=== PATIENT | female | born 1965 | race American Indian/Alaskan Native ===

== ENCOUNTER 2017-03-19 10:27 | Emergency (ER) | payer OTHER ==
[2017-03-19 15:08] LABS: Hematocrit 43.3 % (30.3-42.9); Mean Corpuscular HGB Conc 32 % (30-34); Mean Corpuscular Hemoglobin 27 pg (28-32); Mean Corpuscular Volume 85 fl (79-97); Platelet Count 338 K/mm3 (140-440); Red Cell Distribution Width 13.4 % (13.2-15.2); White Blood Count 6.7 K/mm3 (4.5-11.0)
[2017-03-19] MEDS ORDERED: CATAPRES PO ONE (15:09)
--- NOTE | 2017-03-19 15:09 | Emergency Department Report ---
HPI - General Chief Complaint: Pain General Time Seen by Provider: 03/19/17 14:18 - HPI HPI: This is a 52-year-old [place] female presents to the emergency department from home with complaint of some concern of enlargement of her thyroid and/or swelling of the neck. She is able to swallow both liquids and solids but says that she has some pain with doing so. She has a history of a thyroid nodule and cysts on the thyroid that were evaluated by Dr. Nunes, through [facility], about 9 or 10 months ago. The nodule was biopsied and was found not to be cancerous. At the same time these cysts were drained. She is supposed to have a one- year follow-up but more recently she feels like the swelling has returned. She denies any fever, chest pain, shortness of breath, nausea, vomiting. She has not taken anything for her symptoms prior to presentation. ED Past Medical Hx - Past Medical History Previous Medical History?: No - Surgical History Past Surgical History?: Yes - Social History Smoking Status: Never Smoker Substance Use Type: None ED Review of Systems ROS: Stated complaint: THROAT SWELLING/THYROID Other details as noted in HPI Comment: All other systems reviewed and negative Constitutional: denies: chills, fever Eyes: denies: eye pain, eye discharge, vision change ENT: denies: ear pain, throat pain Respiratory: denies: cough, shortness of breath, wheezing Cardiovascular: denies: chest pain, palpitations Gastrointestinal: denies: abdominal pain, nausea, diarrhea Genitourinary: denies: urgency, dysuria, discharge Musculoskeletal: denies: back pain, arthralgia Skin: denies: rash, lesions Neurological: denies: headache, weakness, paresthesias Physical Exam - Physical Exam Vital Signs: Vital Signs 03/19/17 03/19/17 11:15 14:18 Temperature 97.9 F Pulse Rate 18 L 74 Respiratory 18 16 Rate Blood Pressure 188/94 Blood Pressure 181/91 [Left] O2 Sat by Pulse 99 97 Oximetry Physical Exam: GENERAL: The patient is well-developed well-nourished. HENT: Normocephalic. Atraumatic. Patient has moist mucous membranes. No drooling or trismus. Oropharynx is clear. EYES: Extraocular motions are intact. Pupils equal reactive to light bilaterally. NECK: Supple. Trachea is midline. There is some anterior neck fullness. CHEST/LUNGS: Clear to auscultation. There is no respiratory distress noted. HEART/CARDIOVASCULAR: Regular. There is no tachycardia. There is no gallop rub or murmur. ABDOMEN: Abdomen is soft, nontender. Patient has normal bowel sounds. There is no abdominal distention. SKIN: Skin is warm and dry. NEURO: The patient is awake, alert, and oriented. The patient is cooperative. The patient has no focal neurologic deficits. The patient has normal speech. MUSCULOSKELETAL: There is no tenderness or deformity. There is no limitation range of motion. There is no evidence of acute injury. ED Course Vital Signs 03/19/17 03/19/17 11:15 14:18 Temperature 97.9 F Pulse Rate 18 L 74 Respiratory 18 16 Rate Blood Pressure 188/94 Blood Pressure 181/91 [Left] O2 Sat by Pulse 99 97 Oximetry ED Medical Decision Making - Lab Data Result diagrams: 03/19/17 14:44 03/19/17 14:44 - Radiology Data Radiology results: report reviewed ULTRASOUND THYROID INDICATION: Thyromegaly, neck swelling. History of thyroid nodules, FNA. COMPARISON: 08/24/[address] images. FINDINGS: Longitudinal and transverse grayscale and color flow sonographic evaluation of the thyroid demonstrates an approximately 2.2 x 0.9 cm solid nodule in the isthmus as on image 8. Remainder isthmic thickness approximately 0.7 cm. RIGHT LOBE: Estimated at 4.1 x 1.5 x 1.4 cm. Normal echogenicity and vascularity, though at least 2 small hypoechoic/cystic foci noted in its upper aspect, the larger approximately 5-6 mm as on image 22. LEFT LOBE: Estimated at 3.7 x 1.1 x 1.2 cm with preserved echogenicity and vascularity. A small 3-4 mm peripheral hypoechoic focus noted superiorly, image 37. CONCLUSION: Overall normal thyroid gland size with few small nodules, the largest again noted in the isthmus, as above. Thank you for the opportunity to participate in this patient's care. Transcribed By: RS Dictated By: NIKOK MACEDO MD Electronically Authenticated By: NIKKO MACEDO MD Signed Date/Time: 03/19/17 3384 - Medical Decision Making 52-year-old female presents with the complaint of a feeling of fullness towards the neck and/or throat with some pain or difficulty swallowing. She feels that this consistent with a previous thyroid nodule and cysts that she had had to be drained. Labs are unremarkable. Thyroid or sound shows a thyroid nodule in the isthmus and a few other nodules. She does not have any drooling or trismus and is able to keep down her secretions and swallow water. There is nothing that appears to be a thyroid emergency and the patient has good follow-up with Dr. Nunes whom the patient says previously took care of her thyroid nodule and cysts. She will return to the ER with any worsening of her symptoms or any acute distress. - Differential Diagnosis thyromegaly, malignancy, lymphadenopathy Critical Care Time: No Critical care attestation.: If time is entered above; I have spent that time in minutes in the direct care of this critically ill patient, excluding procedure time. ED Disposition Clinical Impression: Thyroid nodule Disposition: DC- TO HOME OR SELFCARE Is pt being admited?: No Condition: Stable Instructions: Thyroid Nodules (ED) Additional Instructions: Please follow-up with your primary care physician and the physician who previously worked on your thyroid. Return to the emergency department with any worsening of your symptoms or any acute distress. Referrals: ANDREEA NUNES MD [Referring] - ANDREA Forms: Work/School Release Form(ED) Time of Disposition: 17:00
[2017-03-19 15:27] LABS: Alanine Aminotransferase 51 units/L (7-56); Albumin 4.3 g/dL (3.9-5); Albumin/Globulin Ratio 1.2 %; Alkaline Phosphatase 117 units/L (35-129); Anion Gap 16 mmol/L; BUN/Creatinine Ratio 13; Blood Urea Nitrogen 8 mg/dL (7-17); Calcium 9.3 mg/dL (8.4-10.2); Carbon Dioxide 29 mmol/L (22-30); Glucose 86 mg/dL (65-100); Potassium 3.6 mmol/L (3.6-5.0); Sodium 141 mmol/L (137-145)
[2017-03-19 15:37] VITALS: BP 148/85
[2017-03-19 16:13] LABS: Basophils % (Manual) 0 % (0.0-1.8); Blastocytes % (Manual) 0 %
[2017-03-19 16:14] LABS: Anisocytosis 1+; Large Platelets Few; Poikilocytosis Few
[2017-03-19 16:15] LABS: Diff Status Complete
--- NOTE | 2017-03-19 16:38 | Ultrasound Report ---
ULTRASOUND THYROID INDICATION: Thyromegaly, neck swelling. History of thyroid nodules, FNA. COMPARISON: 08/24/[address] images. FINDINGS: Longitudinal and transverse grayscale and color flow sonographic evaluation of the thyroid demonstrates an approximately 2.2 x 0.9 cm solid nodule in the isthmus as on image 8. Remainder isthmic thickness approximately 0.7 cm. RIGHT LOBE: Estimated at 4.1 x 1.5 x 1.4 cm. Normal echogenicity and vascularity, though at least 2 small hypoechoic/cystic foci noted in its upper aspect, the larger approximately 5-6 mm as on image 22. LEFT LOBE: Estimated at 3.7 x 1.1 x 1.2 cm with preserved echogenicity and vascularity. A small 3-4 mm peripheral hypoechoic focus noted superiorly, image 37. CONCLUSION: Overall normal thyroid gland size with few small nodules, the largest again noted in the isthmus, as above. Thank you for the opportunity to participate in this patient's care.
== END 2017-03-19 17:05 | disposition home or self-care (01) ==
LOC: ED 10:27
DX: E04.1 Nontoxic single thyroid nodule (principal)
CPT/HCPCS: 36415; 76536; 80053; 84439; 84443; 85007; 85025